=== PATIENT | female | born 1980 | race Caucasian/White ===

== ENCOUNTER 2018-03-25 18:17 | Emergency (ER) | payer OTHER ==
--- OUTSIDE RECORDS SUMMARY | 2018-03-25 18:20 | XMS REPORT | Clinical Summary ---
:1980 Author Organization [facility] Address [address] [place] [address] Care Team Providers Name Role Phone Elisabeth Herrera MD Primary Care Provider Allergies No Known Allergies Current Medications Prescription Sig. Disp. Refills Start Date End Date Status THYROID,PORK (ARMOUR Take by mouth. Active THYROID ORAL) cholecalciferol (VITAMIN Take 10,000 Units Active D3) 10,000 unit by mouth daily. capsuleIndications: Right upper quadrant abdominal pain OLIVE LEAF EXTRACT ORAL Take by mouth. Active ASHWAGANDHA ROOT Active EXTRACT,BULK, MISC CORTISONE ACETATE 2.5 mg. Active (CORTISONE, BULK, MISC) Active Problems Problem Noted Date Hypothyroid Encounters Date Type Specialty Care Team Description 06/08/2017 Hospital Encounter Gastroenterology Jourdan Boo MD 06/08/2017 Procedure Pass Gastroenterology 06/08/2017 Surgery Gastroenterology Jourdan Boo SMALL BOWEL CAPSULE SAME DAY RETURN 06/08/2017 Procedure Pass Gastroenterology 06/08/2017 Surgery Gastroenterology Jourdan Boo SMALL BOWEL CAPSULE after 03/24/2017 Family History Medical History Relation Name Comments Alzheimer's disease Father Heart disease Father CABG/Stent Mother Diabetes Mother Liver cancer Mother Hyperthyroidism Sister Relation Name Status Comments Father Mother Sister Social History Tobacco Use Types Packs/Day Years Used Date Former Smoker 1 5 Quit: 2006 Smokeless Tobacco: Never Used Alcohol Use Drinks/Week oz/Week Comments No Sex Assigned at Date Recorded Not on file Last Filed Vital Signs Not on file Plan of Treatment Health Maintenance Due Date Last Done Comments CERVICAL CANCER SCREENING 11/03/2000 INFLUENZA VACCINE 02/15/2018 Results Not on fileafter 03/24/2017 Insurance Payer Benefit Plan / Group Subscriber ID Type Phone Address AETNA AETNA HMO,POS,EPO, MC/EC xxxxxxxxxx HMO Home: [id number] [phone] [place], [place] [phone]
[2018-03-25] MEDS ORDERED: ONDANSETRON 4 MG/2 ML VIAL ONE (19:42)
[2018-03-25] MEDS ORDERED: MORPHINE 4 MG/ML SYR ONE (19:42)
[2018-03-25] MEDS ORDERED: NA CHLORIDE 0.9% 1,000 ML ONE (19:43)
[2018-03-25 20:10] LABS: Urine Blood 2+ (NEG); Urine Glucose NEGATIVE (NEG); Urine Protein NEGATIVE (NEG); Urine pH 5.5 (5.0-7.0)
[2018-03-25 20:13] LABS: Absolute Lymphocytes (CBC) 2.2 K/uL (0.7-4.9); Absolute Monocytes 0.6 K/uL (0.1-1.3); Absolute Neutrophil 5.9 K/uL (1.8-8.0); Basophils % 0.6 % (0-1.3); Eosinophils % 0.7 % (0-4.4); Hematocrit 41.6 % (36.0-45.0); Lymphocytes % 24.8 % (15.3-44.8); MCH 30.1 pg (27.0-35.0); MPV 8.7 fL (7.6-11.3); Monocytes % 6.9 % (3.3-12.3); RBC Red Blood Cell Count 4.73 M/uL (3.86-4.86)
[2018-03-25 20:14] LABS: Urine RBC <5 /HPF (NONE SEEN)
[2018-03-25 20:15] LABS: Urine Bacteria <20 /HPF (<20); Urine Culture Reflex Order NOT NEEDED
[2018-03-25 20:28] LABS: ALT/SGPT 32 U/L (12-78); AST/SGOT 20 U/L (15-37); Albumin 4.2 g/dL (3.4-5.0); Alkaline Phosphatase 85 U/L (45-117); Amylase Level 67 U/L (25-115); BUN Blood Urea Nitrogen 11 mg/dL (7-18); Bicarbonate 25 mmol/L (21-32); Bilirubin Direct < 0.1 mg/dL (0-0.2); Bilirubin Total 0.2 mg/dL (0.2-1.0); Glucose Level 103 mg/dL (74-106); Lipase 190 U/L (73-393); Potassium 3.8 mmol/L (3.5-5.1); Protein, Total 8.3 g/dL (6.4-8.2); Sodium Level 141 mmol/L (136-145)
--- NOTE | 2018-03-25 20:36 | RAD REPORT ---
EXAM DESCRIPTION: US - Pelvis Complete - 03/25/2018 8:26 pm CLINICAL HISTORY: pelvic pain Pelvic pain. COMPARISON: Transvaginal Study Probe dated 12/14/2016 FINDINGS: The uterus is normal in size, shape and echotexture. The uterus measures 7.7 x 3.5 x 5.3 c m. The endometrial stripe measures 13 mm, normal. Both ovaries are normal in size, shape and echotexture. The right ovary measures 3.5 x 1.8 x 1.7 cm. The left ovary measures 2.5 x 2.9 x 1.9 cm. No ovarian or parovarian lesions. No adnexal masses. Normal Doppler blood flow was demonstrated to both ovaries. No significant pelvic ascites. IMPRESSION: Unremarkable study.
--- NOTE | 2018-03-25 21:34 | RAD REPORT ---
EXAM DESCRIPTION: CTAbdomen Pelvis W Contrast - 03/25/2018 9:27 pm CLINICAL HISTORY: Abdominal pain. Right lower abdominal pain, IV ONLY COMPARISON: <Comparisons> TECHNIQUE: Biphasic CT imaging of the abdomen and pelvis was performed with 100 ml non-ionic IV cont rast. All CT scans are performed using dose optimization technique as appropriate and may include automated exposure control or mA/KV adjustment according to patient size. FINDINGS: The lung bases are clear. The liver, spleen, adrenal glands and kidneys are within normal limits. Mild fatty infiltration of th e pancreas. No bowel obstruction, free air, free fluid or abscess. Appendectomy. No evidence of significant lym phadenopathy. No suspicious bony findings. IMPRESSION: No acute intra-abdominal or pelvic finding.
--- NOTE | 2018-03-25 21:59 | ER ---
Nurse's Notes [facility] Name: Bambi Wall Age: 37 yrs Sex: Female : 1980 Arrival Date: 03/25/2018 Time: 18:22 Bed 19 Private MD: ANABELLA LISA Diagnosis: Abdominal and pelvic pain Presentation: 03/25 18:46 Presenting complaint: Patient states: RLQ abdominal pain, and suprapubic pain that aj1 radiates to the back for the past week. Reports her pain has become more severe over the past 2 days. Reports nausea, vomiting. Denies diarrhea. Denies urinary symptoms, denies abnormal vaginal discharge. Transition of care: patient was not received from another setting of care. Onset of symptoms was March 18, 2018. Risk Assessment: Do you want to hurt yourself or someone else? Patient reports no desire to harm self or others. Initial Sepsis Screen: Does the patient meet any 2 criteria? HR > 90 bpm. No. Patient's initial sepsis screen is negative. Does the patient have a suspected source of infection? Yes: Acute abdominal pain. Care prior to arrival: None. 18:46 Method Of Arrival: Ambulatory aj 18:46 Acuity: MICKY 3 aj1 Triage Assessment: 18:49 General: Appears in no apparent distress. uncomfortable, Behavior is calm, cooperative, aj1 appropriate for age. Pain: Complains of pain in suprapubic area and right lower quadrant Pain radiates to back Pain currently is 8 out of 10 on a pain scale. Neuro: Level of Consciousness is awake, alert, obeys commands. Cardiovascular: Patient's skin is warm and dry. Respiratory: Airway is patent Respiratory effort is even, unlabored, Respiratory pattern is regular, symmetrical. GI: Reports lower abdominal pain, nausea, vomiting, Patient currently denies diarrhea. : Denies burning with urination, discharge, urinary frequency. Derm: Skin is pink, warm \T\ dry. normal. [employer] A[employer]LYST: 18:49 LMP 03/06/2018 aj1 Historical: - Allergies: 18:49 No Known Allergies; aj1 - Home Meds: 18:49 [place] Thyroid 8 grain Oral daily [Active]; cortisol 2.5 mg once a day daily [Active]; aj1 - PMHx: 18:49 Thyroid problem; aj1 - PSHx: 18:49 Appendectomy; aj1 - Immunization history:: Flu vaccine is not up to date. - Social history:: Smoking status: Patient/guardian denies using tobacco. - Ebola Screening: : Patient denies travel to an Ebola-affected area in the 21 days before illness onset. Screenin:11 Abuse screen: Denies threats or abuse. Denies injuries from another. Nutritional ao screening: No deficits noted. Tuberculosis screening: No symptoms or risk factors identified. Fall Risk None identified. Assessment: 19:10 General: Appears in no apparent distress. uncomfortable, Behavior is calm, cooperative, ao appropriate for age. Pain: Complains of pain in suprapubic area and left lower quadrant. Pain: Pain currently is 8 out of 10 on a pain scale. Pain began 2-3 days ago. Neuro: Level of Consciousness is awake, alert, obeys commands, Oriented to person, place, time, situation, Appropriate for age Moves all extremities. Full function Speech is normal, Facial symmetry appears normal. Cardiovascular: Capillary refill < 3 seconds Patient's skin is warm and dry. Respiratory: Airway is patent Respiratory effort is even, unlabored, Respiratory pattern is regular, symmetrical. GI: Abdomen is non-distended, Bowel sounds present X 4 quads. Abd is soft and non tender X 4 quads. Abd is non tender. : No signs and/or symptoms were reported regarding the genitourinary system. EENT: No signs and/or symptoms were reported regarding the EENT system. Derm: Skin is intact, Skin is pink, warm \T\ dry. normal, Skin temperature is warm. Musculoskeletal: No signs and/or symptoms reported regarding the musculoskeletal system. 19:51 Reassessment: Patient wants to wait before taking pain medications and zofran. ao 20:20 Reassessment: Patient appears in no apparent distress at this time. Patient and/or ao family updated on plan of care and expected duration. Pain level reassessed. Patient is alert, oriented x 3, equal unlabored respirations, skin warm/dry/pink. Waiting on ultrasound report. 21:42 Reassessment: Patient appears in no apparent distress at this time. Patient and/or ao family updated on plan of care and expected duration. Pain level reassessed. Patient is alert, oriented x 3, equal unlabored respirations, skin warm/dry/pink. Waiting on dispo orders. 22:12 Reassessment: D/C instructions given to patient. Patient agree to F/U with PCP. No ao questions at this time. Vital Signs: 18:49 BP 146 / 95; Pulse 91; Resp 18; Temp 97.8(TE); Pulse Ox 100% on R/A; Weight 71.67 kg aj1 (R); Height 5 ft. 3 in. (160.02 cm) (R); Pain 8/10; 20:20 BP 130 / 82; Pulse 70; Resp 16; Pulse Ox 98% on R/A; Pain 3/10; ao 21:42 BP 137 / 86; Pulse 72; Resp 16; Pulse Ox 100% on R/A; Pain 0/10; ao 22:13 BP 122 / 72; Pulse 70; Resp 16; Pulse Ox 100% ; ao 18:49 Body Mass Index 27.99 (71.67 kg, 160.02 cm) aj1 ED Course: 18:22 Patient arrived in ED. sb2 18:22 ANABELLA LISA is Private Physician. sb2 18:48 Triage completed. aj1 18:49 Arm band placed on Patient placed in an exam room. aj1 18:51 Aroldo Mejia PA is PHCP. jmm 18:51 Mundo Earl MD is Attending Physician. jmm 19:10 Robinson Bender, RN is Primary Nurse. ao 19:12 Patient has correct armband on for positive identification. Pulse ox on. NIBP on. ao 20:19 Ultrasound completed. Patient tolerated well. sg3 20:19 Notified AUTOMATIC STACKER/PA kailash with prelim. sg3 20:26 US Pelvis Complete In Process Unspecified. EDMS 21:01 CT completed. Patient tolerated procedure well. Patient moved back from CT. vr 21:27 CT Abd/Pelvis - W/Contrast In Process Unspecified. EDMS 21:55 Fabio Fajardo MD is Referral Physician. jmm 22:11 No provider procedures requiring assistance completed. IV discontinued, intact, ao bleeding controlled, No redness/swelling at site. Pressure dressing applied. Administered Medications: 19:50 Drug: NS 0.9% 1000 ml Route: IV; Rate: 1 bolus; Site: right antecubital; ao 22:00 Follow up: IV Status: Completed infusion; IV Intake: 1000ml ao 21:40 Drug: morphine 4 mg Route: IVP; Site: right antecubital; ao 22:14 Follow up: Response: No adverse reaction ao 21:48 Drug: Zofran 4 mg Route: IVP; Site: right antecubital; ao 22:14 Follow up: Response: No adverse reaction ao Intake: 22:00 IV: 1000ml; Total: 1000ml. ao Outcome: 21:58 Discharge ordered by . krystin 22:11 Discharged to home ambulatory, with significant other. ao 22:11 Condition: stable 22:11 Discharge instructions given to patient, Instructed on discharge instructions, follow up and referral plans. Demonstrated understanding of instructions, follow-up care, medications, Prescriptions given X 2. 22:13 Patient left the ED. ao Signatures: Dispatcher [employer] Ivelisse Sexton, TRAVIS RN Aroldo Saldana PA PA jmm Davis, Victoria vr Ortiz, Alex, RN RN ao Godinez, Sarah 3 Nancy Lin sb2
--- NOTE | 2018-03-25 21:59 | EDPHYS ---
Physician Documentation [facility] Name: October Duke Age: 37 yrs Sex: Female : 1980 Arrival Date: 03/25/2018 Time: 18:22 Bed 19 Private MD: ANABELLA LISA ED Physician Mundo Earl HPI: 03/25 18:57 This 37 yrs old Female presents to ER via Ambulatory with complaints of jmm Abdominal Pain, Back Pain. 18:57 The patient presents with abdominal pain in the lower abdomen, right lower quadrant. jmm Onset: The symptoms/episode began/occurred gradually, 1 week(s) ago. The symptoms radiate to back and abdomen. Associated signs and symptoms: Pertinent positives: nausea and vomiting, Pertinent negatives: diarrhea, fever. This is a 37 year old female with no chronic medical conditions that presents to the ED with right side abdominal pain for 1 week. Patient states the pain radiates to the lower back. Also complains of vomiting. Denies fever. . MDM SR: 18:49 LMP 03/06/2018 aj1 Historical: - Allergies: 18:49 No Known Allergies; aj1 - Home Meds: 18:49 [place] Thyroid 8 grain Oral daily [Active]; cortisol 2.5 mg once a day daily [Active]; aj1 - PMHx: 18:49 Thyroid problem; aj1 - PSHx: 18:49 Appendectomy; aj1 - Immunization history:: Flu vaccine is not up to date. - Social history:: Smoking status: Patient/guardian denies using tobacco. - Ebola Screening: : Patient denies travel to an Ebola-affected area in the 21 days before illness onset. ROS: 18:57 Constitutional: Negative for fever, chills, and weight loss, Cardiovascular: Negative jmm for chest pain, palpitations, and edema, Respiratory: Negative for shortness of breath, cough, wheezing, and pleuritic chest pain. 18:57 Abdomen/GI: Positive for abdominal pain. 18:57 Back: Positive for radiated pain. 18:57 : Negative for urinary symptoms. 18:57 All other systems are negative. Exam: 18:57 Head/Face: atraumatic. Chest/axilla: Normal chest wall appearance and motion. jmm Cardiovascular: Regular rate and rhythm. No edema appreciated Respiratory: Normal respirations, no respiratory distress appreciated 18:57 Constitutional: The patient appears alert, awake, uncomfortable. 18:57 Abdomen/GI: Inspection: abdomen appears normal, Bowel sounds: normal, Palpation: soft, mild abdominal tenderness, in the right upper quadrant and right lower quadrant. 18:57 Back: ROM is normal. 18:57 Skin: Appearance: Color: normal in color. 18:57 Neuro: Orientation: is normal, Mentation: is normal, Memory: is normal. 18:57 Psych: Behavior/mood is pleasant, cooperative. Vital Signs: 18:49 BP 146 / 95; Pulse 91; Resp 18; Temp 97.8(TE); Pulse Ox 100% on R/A; Weight 71.67 kg aj1 (R); Height 5 ft. 3 in. (160.02 cm) (R); Pain 8/10; 20:20 BP 130 / 82; Pulse 70; Resp 16; Pulse Ox 98% on R/A; Pain 3/10; ao 21:42 BP 137 / 86; Pulse 72; Resp 16; Pulse Ox 100% on R/A; Pain 0/10; ao 22:13 BP 122 / 72; Pulse 70; Resp 16; Pulse Ox 100% ; ao 18:49 Body Mass Index 27.99 (71.67 kg, 160.02 cm) aj1 MDM: 18:57 Patient medically screened. [facility] 21:18 Data reviewed: vital signs, nurses notes. [facility] 21:54 Counseling: I had a detailed discussion with the patient and/or guardian regarding: the [facility] historical points, exam findings, and any diagnostic results supporting the discharge/admit diagnosis, the presence of at least one elevated blood pressure reading (>120/80) during this emergency department visit, radiology results, the need for outpatient follow up, to return to the emergency department if symptoms worsen or persist or if there are any questions or concerns that arise at home. Response to treatment: the patient's symptoms have mildly improved after treatment. ED course: Patient advised to follow up with GI and OBGYN for further evaluation. Given strict return precautions. Patient understood and agrees with the plan of care. . 03/25 19:05 Order name: Amylase, Serum; Complete Time: 20:32 [facility] 03/25 19:05 Order name: Basic Metabolic Panel; Complete Time: 20:32 [facility] 03/25 19:05 Order name: CBC with Diff; Complete Time: 20:32 [facility] 03/25 19:05 Order name: Creatinine for Radiology; Complete Time: 20:32 [facility] 03/25 19:05 Order name: Hepatic Function; Complete Time: 20:32 [facility] 03/25 19:05 Order name: Lipase; Complete Time: 20:32 [facility] 03/25 19:05 Order name: Urine Microscopic Only; Complete Time: 20:32 [facility] 03/25 19:12 Order name: US Pelvis Complete; Complete Time: 20:44 [facility] 03/25 19:40 Order name: Urine Dipstick--Ancillary (enter results); Complete Time: 20:32 [facility] 03/25 19:40 Order name: Urine --Ancillary (enter results); Complete Time: 20:32 [facility] 03/25 20:33 Order name: CT Abd/Pelvis - W/Contrast; Complete Time: 21:46 [facility] 03/25 19:05 Order name: Urine Test (obtain specimen); Complete Time: 19:17 [facility] 03/25 19:05 Order name: IV Saline Lock; Complete Time: 19:50 [facility] 03/25 19:05 Order name: Labs collected and sent; Complete Time: 19:50 [facility] 03/25 19:05 Order name: Urine Dipstick-Ancillary (obtain specimen); Complete Time: 19:50 jm Administered Medications: 19:50 Drug: NS 0.9% 1000 ml Route: IV; Rate: 1 bolus; Site: right antecubital; ao 22:00 Follow up: IV Status: Completed infusion; IV Intake: 1000ml ao 21:40 Drug: morphine 4 mg Route: IVP; Site: right antecubital; ao 22:14 Follow up: Response: No adverse reaction ao 21:48 Drug: Zofran 4 mg Route: IVP; Site: right antecubital; ao 22:14 Follow up: Response: No adverse reaction ao Disposition: 03/26 10:03 Co-signature as Attending Physician, Mundo Earl MD. rn Disposition: 03/25/18 21:58 Discharged to Home. Impression: Abdominal and pelvic pain. - Condition is Stable. - Discharge Instructions: Abdominal Pain, Adult. - Prescriptions for Ibuprofen 800 mg Oral Tablet - take 1 tablet by ORAL route every 12 hours As needed take with food; 20 tablet. Tylenol- Codeine #3 300-30 mg Oral Tablet - take 1 tablet by ORAL route every 6 hours As needed; 12 tablet. - Medication Reconciliation Form, Thank You Letter, Antibiotic Education, Prescription Opioid Use form. - Follow up: Fabio Fajardo MD; When: 2 - 3 days; Reason: Recheck today's complaints, Continuance of care, Re-evaluation by your physician. Signatures: Dispatcher [employer] EDIvelisse Gannon RN RN aj1 Aroldo Mejia PA PA jmm Nieto, Roman, MD MD rn Ortiz, Alex, RN RN ao Corrections: (The following items were deleted from the chart) 03/25 22:13 21:58 03/25/2018 21:58 Discharged to Home. Impression: Abdominal and pelvic pain. ao Condition is Stable. Forms are Medication Reconciliation Form, Thank You Letter, Antibiotic Education, Prescription Opioid Use. Follow up: Fabio Fajardo; When: 2 - 3 days; Reason: Recheck today's complaints, Continuance of care, Re-evaluation by your physician. krystin
== END 2018-03-25 22:13 | disposition home or self-care (01) ==
LOC: ER 18:17
DX: R10.9 Unspecified abdominal pain (principal); R10.2 Pelvic and perineal pain; M54.9 Dorsalgia, unspecified; R11.10 Vomiting, unspecified; E07.9 Disorder of thyroid, unspecified
CPT/HCPCS: 36415; 74177; 76856; 80048; 80076; 81003; 81015; 81025; 82150; 83690; 85025; 96361; 96374; 96375; 99284; J2405; J7030; Q9967

== ENCOUNTER 2018-09-17 04:44 | Emergency (ER) | payer OTHER ==
--- OUTSIDE RECORDS SUMMARY | 2018-09-17 04:47 | XMS REPORT | Clinical Summary ---
:1980 Author Organization [facility] Address [address] [place] [address] Care Team Providers Name Role Phone Elisabeth Herrera MD Primary Care Provider Allergies No Known Allergies Medications Medication Sig Dispensed Refills Start Date End Date Status THYROID,PORK (ARMOUR Take by mouth. 0 Active THYROID ORAL) cholecalciferol (VITAMIN Take 10,000 0 Active D3) 10,000 unit Units by mouth capsuleIndications: Right daily. upper quadrant abdominal pain OLIVE LEAF EXTRACT ORAL Take by mouth. 0 Active ASHWAGANDHA ROOT 0 Active EXTRACT,BULK, MISC CORTISONE ACETATE 2.5 mg. 0 Active (CORTISONE, BULK, MISC) Active Problems Problem Noted Date Hypothyroid Encounters Date Type Specialty Care Team Description 04/06/2018 Telephone Gynecologic Oncology Chioma Morocho MD after 09/16/2017 Family History Medical History Relation Name Comments Alzheimer's disease Father Heart disease Father CABG/Stent Mother Diabetes Mother Liver cancer Mother Hyperthyroidism Sister Relation Name Status Comments Father Mother Sister Social History Tobacco Use Types Packs/Day Years Used Date Former Smoker 1 5 Quit: 2006 Smokeless Tobacco: Never Used Alcohol Use Drinks/Week oz/Week Comments No Sex Assigned at Date Recorded Not on file Job Start Date Occupation Industry Not on file Not on file Not on file Travel History Travel Start Travel End No recent travel history available. Last Filed Vital Signs Not on file Plan of Treatment Health Maintenance Due Date Last Done Comments CERVICAL CANCER SCREENING 11/03/2000 INFLUENZA VACCINE 02/15/2018 Results Not on fileafter 09/16/2017 Insurance Payer Benefit Plan / Group Subscriber ID Type Phone Address CIGNA CIGNA PPO xxxxxxxxx PPO Advance Directives Patient has advance care planning documents on file. For more information, please contact:Glenroy Khan[address] [place] [address]
--- OUTSIDE RECORDS SUMMARY | 2018-09-17 04:47 | XMS REPORT ---
:1980 [facility] Address [address] [place] [address] [address] [place] [address] Care Team Providers Name Role Phone Unavailable Unavailable Unavailable Payers Payer Name Policy Type Policy Number Effective Date Expiration Date Problems This patient has no known problems. Allergies, Adverse Reactions, Alerts Allergy Allergy Status Severity Reaction(s) Onset Inactive Treating Comments Name Type Date Date Clinician No Known DA Active U 2011-03 Allergies -23 00:00:0 0 Medications This patient has no known medications.
[2018-09-17] MEDS ORDERED: NA CHLORIDE 0.9% 1,000 ML ONE (05:38)
[2018-09-17 05:43] LABS: Absolute Lymphocytes (CBC) 1.5 K/uL (0.7-4.9); Absolute Monocytes 0.4 K/uL (0.1-1.3); Absolute Neutrophil 3.5 K/uL (1.8-8.0); Basophils % 0.6 % (0-1.3); Eosinophils % 1.1 % (0-4.4); Hematocrit 38.7 % (36.0-45.0); Lymphocytes % 27.4 % (15.3-44.8); Monocytes % 6.7 % (3.3-12.3); RBC Red Blood Cell Count 4.45 M/uL (3.86-4.86)
[2018-09-17 05:50] LABS: Protime INR 0.88
[2018-09-17] MEDS ORDERED: METOPROLOL TAR 25 MG TAB ONE (06:08)
[2018-09-17 06:10] LABS: ALT/SGPT 34 U/L (12-78); AST/SGOT 19 U/L (15-37); Albumin 3.7 g/dL (3.4-5.0); Alkaline Phosphatase 80 U/L (45-117); BUN Blood Urea Nitrogen 13 mg/dL (7-18); Bicarbonate 24 mmol/L (21-32); Bilirubin Direct < 0.1 mg/dL (0-0.2); Bilirubin Total 0.2 mg/dL (0.2-1.0); Glucose Level 103 mg/dL (74-106); Lipase 234 U/L (73-393); Magnesium 1.8 mg/dL (1.8-2.4); NT PRO-BNP 93 pg/mL (<125); Potassium 3.9 mmol/L (3.5-5.1); Sodium Level 143 mmol/L (136-145); Troponin (Emerg Dept Use Only) < 0.02 ng/mL (0.0-0.045)
--- NOTE | 2018-09-17 06:33 | ER ---
Nurse's Notes [facility] Name: October Duke Age: 37 yrs Sex: Female : 1980 Arrival Date: 09/17/2018 Time: 04:48 Bed 19 Private MD: Diagnosis: Palpitations Presentation: 09/17 05:00 Presenting complaint: Patient states: around 0230H suddenly i feel nauseous and feel my rr5 heart is raising vomited once then started to have palpitation, skip beats felt. left shoulder pain pain score 2/10. Transition of care: patient was not received from another setting of care. Onset of symptoms was September 17, 2018 at 02:30. Risk Assessment: Do you want to hurt yourself or someone else? Patient reports no desire to harm self or others. Initial Sepsis Screen: Does the patient meet any 2 criteria? No. Patient's initial sepsis screen is negative. Does the patient have a suspected source of infection? No. Patient's initial sepsis screen is negative. Care prior to arrival: Medication(s) given: zofran \T\0300H. 05:00 Method Of Arrival: Ambulatory rr5 05:00 Acuity: MICKY 3 rr5 [employer]: 05:00 LMP 08/24/2018 rr5 Historical: - Allergies: 05:07 No Known Allergies; rr5 - Home Meds: 05:07 [place] Thyroid 8 grain Oral daily [Active]; cortisol 2.5 mg once a day daily [Active]; rr5 - PMHx: 05:07 Thyroid problem; rr5 - PSHx: 05:07 Appendectomy; right fallopian tube surgery; rr5 - Immunization history:: Adult Immunizations not up to date, Flu vaccine is not up to date. - Social history:: Smoking status: Patient/guardian denies using tobacco, Patient/guardian denies using alcohol, street drugs. - Ebola Screening: : Patient negative for fever greater than or equal to 101.5 degrees Fahrenheit, and additional compatible Ebola Virus Disease symptoms Patient denies exposure to infectious person Patient denies travel to an Ebola-affected area in the 21 days before illness onset. - Family history:: not pertinent. Screenin:07 Abuse screen: Denies threats or abuse. Denies injuries from another. Nutritional rr5 screening: No deficits noted. Tuberculosis screening: No symptoms or risk factors identified. Fall Risk Total Vital Fall Scale indicates No Risk (0-24 pts). Assessment: 05:00 General: Appears in no apparent distress. comfortable, Behavior is calm, cooperative, rr5 appropriate for age. Pain: Complains of pain in left shoulder Pain does not radiate. Pain currently is 2 out of 10 on a pain scale. Quality of pain is described as aching, Pain began gradually, Is intermittent. Neuro: Level of Consciousness is awake, alert, obeys commands, Oriented to person, place, time, situation, Appropriate for age. Cardiovascular: Reports palpitations, Capillary refill < 3 seconds Patient's skin is warm and dry. Respiratory: Airway is patent Respiratory effort is even, unlabored, Respiratory pattern is regular, symmetrical. GI: Reports nausea, vomiting. : No signs and/or symptoms were reported regarding the genitourinary system. EENT: No signs and/or symptoms were reported regarding the EENT system. Derm: Skin is intact, Skin temperature is warm. Musculoskeletal: Capillary refill < 3 seconds, Range of motion: intact in all extremities. 06:00 Reassessment: Patient appears in no apparent distress at this time. Patient is alert, rr5 oriented x 3, equal unlabored respirations, skin warm/dry/pink. refused for Lopressor tablet as verbalized she feels fine now. Patient denies pain at this time. Patient states feeling better. Patient states symptoms have improved. 06:50 Reassessment: Patient appears in no apparent distress at this time. Patient is alert, rr5 oriented x 3, equal unlabored respirations, skin warm/dry/pink. patient refused for chest X-ray. ED provider aware. discharge instruction given and explained without complaints made. Patient denies pain at this time. Patient states feeling better. Patient states symptoms have improved. Vital Signs: 05:00 BP 132 / 94; Pulse 94; Resp 19; Temp 98.4; Pulse Ox 100% ; Weight 68.04 kg; Height 5 rr5 ft. 3 in. (160.02 cm); Pain 2/10; 06:00 BP 122 / 85; Pulse 86; Resp 17; Pulse Ox 99% ; rr5 06:50 BP 121 / 80; Pulse 80; Resp 17; Pulse Ox 99% ; rr5 05:00 Body Mass Index 26.57 (68.04 kg, 160.02 cm) rr5 ED Course: 04:48 Patient arrived in ED. ag3 04:52 Edgar Marshall MD is Attending Physician. nikos 04:59 Lincoln Nunn, RN is Primary Nurse. rr5 05:00 EKG completed in triage. Results shown to MD. rr5 05:00 Patient has correct armband on for positive identification. Placed in gown. Bed in low rr5 position. Call light in reach. Side rails up X2. Pulse ox on. NIBP on. 05:03 Triage completed. rr5 05:07 Arm band placed on. rr5 05:25 Inserted saline lock: 20 gauge in right forearm, using aseptic technique. Blood rr5 collected. 06:58 No provider procedures requiring assistance completed. IV discontinued, intact, rr5 bleeding controlled, No redness/swelling at site. Pressure dressing applied. Administered Medications: 05:35 Drug: NS 0.9% 1000 ml Route: IV; Rate: 125 ml/hr; Site: right forearm; rr5 06:58 Follow up: Response: No adverse reaction; IV Status: Order to discontinue infusion; IV rr5 Intake: 200ml 06:00 Not Given (Patient Refused): Lopressor 25 mg PO once rr5 Intake: 06:58 IV: 200ml; Total: 200ml. rr5 Outcome: 06:32 Discharge ordered by . [facility] 06:58 Discharged to home ambulatory, with friend. rr5 06:58 Condition: stable 06:58 Discharge instructions given to patient, Instructed on discharge instructions, follow up and referral plans. medication usage, Demonstrated understanding of instructions, follow-up care, medications, Prescriptions given X 1. 06:59 Patient left the ED. rr5 Signatures: Edgar Marshall MD MD cha Gomez, Alice ag3 Lincoln Nunn, RN RN rr5
--- NOTE | 2018-09-17 06:33 | EDPHYS ---
Physician Documentation [facility] Name: October Duke Age: 37 yrs Sex: Female : 1980 Arrival Date: 09/17/2018 Time: 04:48 Bed 19 Private MD: ED Physician Edgar Marshall HPI: 09/17 05:26 This 37 yrs old Female presents to ER via Ambulatory with complaints of nikos Palpitations. 05:26 The patient presents with a history of irregular heart beat, heart racing. Context: The nikos symptoms occur at rest, during sleep. Onset: The symptoms/episode began/occurred just prior to arrival. Duration: The patient or guardian reports a single episode, that is still ongoing, but improving. Modifying factors: The symptoms are aggravated by nothing. The symptoms are alleviated by nothing. Associated signs and symptoms: The patient has no apparent associated signs or symptoms. Severity of symptoms: At their worst the symptoms were. The patient has experienced similar episodes in the past, several times. 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 - Social history:: Smoking status: Patient/guardian denies using tobacco, Patient/guardian denies using alcohol, street drugs. - Ebola Screening: : Patient negative for fever greater than or equal to 101.5 degrees Fahrenheit, and additional compatible Ebola Virus Disease symptoms Patient denies exposure to infectious person Patient denies travel to an Ebola-affected area in the 21 days before illness onset. - Family history:: not pertinent. ROS: 05:26 Constitutional: Negative for fever, chills, and weight loss, Eyes: Negative for injury, nikos pain, redness, and discharge, ENT: Negative for injury, pain, and discharge, Neck: Negative for injury, pain, and swelling, Respiratory: Negative for shortness of breath, cough, wheezing, and pleuritic chest pain, Abdomen/GI: Negative for abdominal pain, nausea, vomiting, diarrhea, and constipation, Back: Negative for injury and pain, : Negative for injury, bleeding, discharge, and swelling, MS/Extremity: Negative for injury and deformity, Skin: Negative for injury, rash, and discoloration, Neuro: Negative for headache, weakness, numbness, tingling, and seizure, Psych: Negative for depression, anxiety, suicide ideation, homicidal ideation, and hallucinations, Allergy/Immunology: Negative for hives, rash, and allergies, Endocrine: Negative for neck swelling, polydipsia, polyuria, polyphagia, and marked weight changes, Hematologic/Lymphatic: Negative for swollen nodes, abnormal bleeding, and unusual bruising. 05:26 Cardiovascular: Positive for palpitations. Exam: 05:26 Constitutional: This is a well developed, well nourished patient who is awake, alert, nikos and in no acute distress. Head/Face: Normocephalic, atraumatic. Eyes: Pupils equal round and reactive to light, extra-ocular motions intact. Lids and lashes normal. Conjunctiva and sclera are non-icteric and not injected. Cornea within normal limits. Periorbital areas with no swelling, redness, or edema. ENT: Nares patent. No nasal discharge, no septal abnormalities noted. Tympanic membranes are normal and external auditory canals are clear. Oropharynx with no redness, swelling, or masses, exudates, or evidence of obstruction, uvula midline. Mucous membranes moist. Neck: Trachea midline, no thyromegaly or masses palpated, and no cervical lymphadenopathy. Supple, full range of motion without nuchal rigidity, or vertebral point tenderness. No Meningismus. Chest/axilla: Normal chest wall appearance and motion. Nontender with no deformity. No lesions are appreciated. Cardiovascular: Regular rate and rhythm with a normal S1 and S2. No gallops, murmurs, or rubs. Normal PMI, no JVD. No pulse deficits. Respiratory: Lungs have equal breath sounds bilaterally, clear to auscultation and percussion. No rales, rhonchi or wheezes noted. No increased work of breathing, no retractions or nasal flaring. Abdomen/GI: Soft, non-tender, with normal bowel sounds. No distension or tympany. No guarding or rebound. No evidence of tenderness throughout. Back: No spinal tenderness. No costovertebral tenderness. Full range of motion. Female : Normal external genitalia. Skin: Warm, dry with normal turgor. Normal color with no rashes, no lesions, and no evidence of cellulitis. MS/ Extremity: Pulses equal, no cyanosis. Neurovascular intact. Full, normal range of motion. Neuro: Awake and alert, GCS 15, oriented to person, place, time, and situation. Cranial nerves II-XII grossly intact. Motor strength 5/5 in all extremities. Sensory grossly intact. Cerebellar exam normal. Normal gait. Psych: Awake, alert, with orientation to person, place and time. Behavior, mood, and affect are within normal limits. 05:26 Musculoskeletal/extremity: Tendon exam: specific tendon testing normal through active and passive range of motion DVT Exam: No signs of deep vein thrombosis. no pain, no swelling, no tenderness, negative Homans' sign noted on exam, no appreciated bluish discoloration, no erythema, no increased warmth. Vital Signs: 05:00 BP 132 / 94; Pulse 94; Resp 19; Temp 98.4; Pulse Ox 100% ; Weight 68.04 kg; Height 5 rr5 ft. 3 in. (160.02 cm); Pain 2/10; 06:00 BP 122 / 85; Pulse 86; Resp 17; Pulse Ox 99% ; rr5 06:50 BP 121 / 80; Pulse 80; Resp 17; Pulse Ox 99% ; rr5 05:00 Body Mass Index 26.57 (68.04 kg, 160.02 cm) rr5 MDM: 04:52 Patient medically screened. [facility] 05:26 Data reviewed: vital signs, nurses notes, lab test result(s), EKG, radiologic studies, [facility] plain films. 09/17 05:33 Order name: Urine Dipstick--Ancillary (enter results) [facility] 09/17 05:33 Order name: Urine --Ancillary (enter results) [facility] 09/17 05:34 Order name: Basic Metabolic Panel; Complete Time: 06:29 [facility] 09/17 05:34 Order name: Liver (Hepatic) Function; Complete Time: 06:29 [facility] 09/17 04:55 Order name: EKG; Complete Time: 07:13 [facility] 09/17 04:55 Order name: Cardiac monitoring; Complete Time: 05:40 [facility] 09/17 04:55 Order name: EKG - Nurse/Tech; Complete Time: 05:40 [facility] 09/17 04:55 Order name: IV Saline Lock; Complete Time: 05:40 [facility] 09/17 05:34 Order name: Troponin (Emerg Dept Use Only); Complete Time: 06:29 [facility] 09/17 05:34 Order name: NT PRO-BNP; Complete Time: 06:29 [facility] 09/17 05:34 Order name: Magnesium; Complete Time: 06:29 [facility] 09/17 05:34 Order name: Lipase; Complete Time: 06:29 [facility] 09/17 05:34 Order name: Thyroid Stimulating Hormone; Complete Time: 06:29 [facility] 09/17 05:34 Order name: CBC with Automated Diff; Complete Time: 06:29 [facility] 09/17 05:34 Order name: Protime (+INR); Complete Time: 06:29 [facility] 09/17 05:34 Order name: Urine Culture [facility] 09/17 04:55 Order name: Labs collected and sent; Complete Time: 05:40 [facility] 09/17 04:55 Order name: O2 Per Protocol; Complete Time: 05:39 [facility] 09/17 04:55 Order name: O2 Sat Monitoring; Complete Time: 05:40 [facility] 09/17 04:55 Order name: Urine Dipstick-Ancillary (obtain specimen); Complete Time: 05:39 [facility] Administered Medications: 05:35 Drug: NS 0.9% 1000 ml Route: IV; Rate: 125 ml/hr; Site: right forearm; rr5 06:58 Follow up: Response: No adverse reaction; IV Status: Order to discontinue infusion; IV rr5 Intake: 200ml 06:00 Not Given (Patient Refused): Lopressor 25 mg PO once rr5 Disposition: 09/17/18 06:32 Discharged to Home. Impression: Palpitations. - Condition is Stable. - Discharge Instructions: Holter Monitoring, Palpitations, Aspirin and Your Heart, Palpitations, [id number]. - Prescriptions for Toprol XL 25 mg Oral Tablet - take 1 tablet by ORAL route once daily; 20 tablet. - Medication Reconciliation Form, Thank You Letter, Antibiotic Education, Prescription Opioid Use form. - Follow up: Private Physician; When: 2 - 3 days; Reason: Recheck today's complaints, Continuance of care, Re-evaluation by your physician. - Problem is new. - Symptoms have improved. Signatures: Dispatcher [employer] EDEdgar Petersen MD MD cha Roque, Raymond, RN RN rr5 Corrections: (The following items were deleted from the chart) 06:59 06:32 09/17/2018 06:32 Discharged to Home. Impression: Palpitations. Condition is rr5 Stable. Discharge Instructions: Holter Monitoring, Palpitations, Aspirin and Your Heart, Palpitations, [id number]. Prescriptions for Toprol XL 25 mg Oral Tablet - take 1 tablet by ORAL route once daily; 20 tablet. and Forms are Medication Reconciliation Form, Thank You Letter, Antibiotic Education, Prescription Opioid Use. Follow up: Private Physician; When: 2 - 3 days; Reason: Recheck today's complaints, Continuance of care, Re-evaluation by your physician. Problem is new. Symptoms have improved. nikos
[2018-09-17 08:50] LABS: Urine Blood TRACE (NEG); Urine Glucose NEGATIVE (NEG); Urine Protein NEGATIVE (NEG); Urine Specific Gravity 1.005 (1.005-1.030); Urine pH 6.5 (5.0-7.0)
--- NOTE | 2018-09-18 09:14 | EKG ---
Test Date: 2018-09-17 Test Time: 04:58:38 Individual Small Group Instructor: SANDRA MEASUREMENT RESULTS: Intervals: Rate: 89 MI: 158 QRSD: 88 QT: 346 QTc: 420 [place]: P: 64 MI: 158 QRS: 40 T: 36 INTERPRETIVE STATEMENTS: Normal sinus rhythm Normal ECG Compared to ECG 06/13/2011 16:40:45 No significant changes Electronically Signed On 09-18-18 09:13:18 [employer]OM WORKER by Aly Bailon
== END 2018-09-17 06:59 | disposition home or self-care (01) ==
LOC: ER 04:44
DX: R00.2 Palpitations (principal); E07.9 Disorder of thyroid, unspecified
CPT/HCPCS: 36415; 80048; 80076; 81003; 81025; 83690; 83735; 83880; 84443; 84484; 85025; 85610; 87086; 87088; 93005; 96360; 99284; J7030